=== PATIENT | male | born 1940 | race Two or more races ===

== ENCOUNTER 2018-07-31 11:01 | Inpatient (IN) | payer MEDICARE, MEDICAID ==
[~2018-07-31] VITALS: Ht 154.9 cm; Wt 54.6 kg
[2018-07-31] MEDS ORDERED: DECADRON IH STA (11:08)
[2018-07-31] MEDS ORDERED: DUONEB 0.5 MG-3 MG/3 ML SOLN IH STA (11:08)
[2018-07-31 11:14] VITALS: BP 145/90
--- NOTE | 2018-07-31 11:22 | PCM.EKG ---
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
--- NOTE | 2018-07-31 11:27 | DIREP ---
PROCEDURE:CHEST 1 VIEW COMPARISON:None. INDICATIONS:dyspnea FINDINGS: LUNGS/PLEURA:The portable view is rotated limiting evaluation. Patchy infiltrate and/or subsegmental atelectasis is seen in the right base. VASCULATURE:Normal. Unremarkable pulmonary vasculature. CARDIAC:Normal. No cardiac silhouette abnormality or cardiomegaly. MEDIASTINUM:Normal. No visible mass or adenopathy. BONES:A remote left lower rib fracture is seen. OTHER:Negative. CONCLUSION:Limited study secondary to significant rotation of the patient. Findings suggest patchy infiltrate and/or subsegmental atelectasis in the right base. Dictated by: Tristen Grier M.D. on 07/31/2018 at 11:24 AM
--- NOTE | 2018-07-31 11:41 | ER.PDOC ---
General Chief Complaint: Dyspnea/Respdistress Stated Complaint: DYSPNEA Time seen by MD: 11:40 Source: patient Exam Limitations: no limitations, other (ADVANCED DEMENTIA) History of Present Illness Timing/Duration: 4-6 hours Severity: mild Activities at Onset: rest Prior Episodes/Possible Cause: occasional episodes Modifying Factors: improves with activity, improves with albuterol inhaler, improves with coughing, improves with oxygen, improves with rest Associated Symptoms: denies symptoms Prior symptoms/Treatment: Similar symptoms previous Allergies: Coded Allergies: Penicillins (Verified Allergy, Unknown, unknown, 07/31/18) Home Meds Reported Medications Divalproex Sodium (DEPAKOTE SPRINKLE) 125 Mg Cap.sprink, 125 MG PO TID, #4 07/31/18 Docusate Sodium (COLACE) 100 Mg Capsule, 100 MG PO BID, CAPSULE 07/31/18 Multivitamin (Multi Vitamin Daily) 1 Each Tablet, 1 EACH PO DAILY24, TABLET 07/31/18 Metformin Hcl (METFORMIN HCL) 500 Mg Tablet, 500 MG PO DAILY24, TABLET 07/31/18 Memantine Hcl (NAMENDA) 10 Mg Tablet, 10 MG PO HS, TABLET 07/31/18 Lisinopril (LISINOPRIL) 20 Mg Tablet, 20 MG PO DAILY24, TABLET 07/31/18 Levothyroxine Sodium (LEVOTHYROXINE SODIUM) 75 Mcg Tablet, 75 MCG PO DAILY24, TABLET 07/31/18 Calcium Polycarbophil (FIBER TABS) 625 Mg Tablet, 625 MG PO DAILY24, TABLET 07/31/18 Cholecalciferol (Vitamin D3) (VITAMIN D) 1,000 Unit Capsule, 1000 UNIT PO DAILY24, #2 CAPSULE 07/31/18 Donepezil Hcl (ARICEPT) 10 Mg Tablet, 10 MG PO HS, TABLET 07/31/18 Amlodipine Besylate (AMLODIPINE BESYLATE) 10 Mg Tablet, 10 MG PO DAILY24, TABLET for blood pressure 170//90 and above 07/31/18 Past Medical History Medical History: diabetes, hypertension, thyroid disease, other Social History Smoking: non-smoker Alcohol Use: none Drug Use: none Reviewed Nursing Reviewed: Vital Signs, Abn. 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 NML as Tested, No Motor/Sensory Deficits, Alert, Normal Mood/Affect, Oriented x 3 Skin: Normal Color, Warm/Dry Lymphatic: No Adenopathy Results/Orders Results/Orders Laboratory Tests Test 07/31/18 11:30 07/31/18 11:40 Lactate Dehydrogenase 284 U/L (85-227) White Blood Count 18.7 10^3/uL (4.5-11.0) Red Blood Count 5.43 10^6/uL (4.50-5.90) Hemoglobin 15.6 g/dL (13.9-16.3) Hematocrit 46.7 % (37.0-53.0) Mean Corpuscular Volume 86.0 fL (78-100) Mean Corpuscular Hemoglobin 28.7 pg (26-34) Mean Corpuscular Hemoglobin Concent 33.4 g/dL (33-37) Red Cell Distribution Width 16.2 % (11.5-14.5) Platelet Count 240 10^3/uL (150-400) Mean Platelet Volume 9.3 fL (7.8-11.0) Neutrophils (%) (Auto) 80.1 % (41.0-85.0) Lymphocytes (%) (Auto) 8.8 % (24.0-44.0) Monocytes (%) (Auto) 9.9 % (5.0-12.0) Neutrophils # (Auto) 15.0 10^3/uL (1.8-7.7) Lymphocytes # (Auto) 1.7 10^3/uL (1.0-4.8) Monocytes # (Auto) 1.9 10^3/uL (0.3-0.8) Absolute Immature Granulocyte (auto 0.16 10^3 u/L (0-2) Eosinophils % 0.1 % (0.0-5.0) Basophils % 0.2 % (0.0-0.2) Basophils # 0.0 10^3/uL (0.0-0.1) Eosinophil Count 0.0 10^3/uL (0.0-0.2) Prothrombin Time 11.1 SEC (9.8-11.9) Prothrombin Time INR (Non-Therap) 1.1 Activated Partial Thromboplast Time 24.7 SEC (24.67-30.72) D-Dimer 2.02 mg/L (0.19-0.49) Sodium Level 140 mmol/L (132-145) Potassium Level 3.5 mmol/L (3.6-5.2) Chloride Level 106.0 mmol/L (96-109) Carbon Dioxide Level 22.9 mmol/L (20.0-32) Anion Gap 14.6 Blood Urea Nitrogen 19 mg/dL (7-18) Creatinine 1.03 mg/dL (0.59-1.40) Estimated GFR () 85.0 (>/=60) BUN/Creatinine Ratio 18.0 Glucose Level 123 mg/dL (70-110) Calcium Level 9.5 mg/dL (8.4-10.5) Total Bilirubin 0.5 mg/dL (0.2-1.0) Aspartate Amino Transf (AST/SGOT) 25 U/L (0-35) Alanine Aminotransferase (ALT/SGPT) 23 U/L (12-78) Alkaline Phosphatase 127 U/L (50-136) Ammonia 12 umol/L (11-35) Total Creatine Kinase 41 U/L (39-308) Troponin I < 0.02 ng/mL (0.00-0.05) Pro-B-Type Natriuretic Peptide 2702 pg/mL (0-450) Total Protein 6.7 g/dL (6.4-8.2) Albumin 2.3 g/dL (3.4-5.0) Globulin 4.4 Valproic Acid (Depakene) Level 57 ug/mL (50-100) Percent Immature Gran (Cell Imm) 0.90 % (0.00-0.50) Helicobacter pylori Screen NEGATIVE (NEGATIVE) Microbiology Date/Time Source Procedure Growth Status 07/31/18 11:58 Blood Blood Culture - Preliminary NO GROWTH AFTER 1 DAY Resulted 07/31/18 11:30 Blood Blood Culture - Preliminary NO GROWTH AFTER 1 DAY Resulted EKG/XRAY/CT/US EKG: NSR, no ST T wave changes EKG Comments: PAC'S Consult/PCP Time Consult/PCP Called: 17:00 Consult/PCP: dr rodriguez Course Vitals & review Data Vital Sign - Last 24 Hours 07/31/18 07/31/18 07/31/18 07/31/18 11:10 11:10 11:14 12:20 Temp 98.4 98.0 98.0 98.4 98.0 98.0 Pulse 78 78 78 87 Resp 18 18 18 20 B/P (MAP) 145/90 (108) 114/78 (90) Pulse Ox 92 92 88 O2 Delivery Nasal Canula Nasal Canula Room Air Laboratory Tests Test 07/31/18 11:30 07/31/18 11:40 Lactate Dehydrogenase 284 U/L White Blood Count 18.7 10^3/uL Red Blood Count 5.43 10^6/uL Hemoglobin 15.6 g/dL Hematocrit 46.7 % Mean Corpuscular Volume 86.0 fL Mean Corpuscular Hemoglobin 28.7 pg Mean Corpuscular Hemoglobin Concent 33.4 g/dL Red Cell Distribution Width 16.2 % Platelet Count 240 10^3/uL Mean Platelet Volume 9.3 fL Neutrophils (%) (Auto) 80.1 % Lymphocytes (%) (Auto) 8.8 % Monocytes (%) (Auto) 9.9 % Neutrophils # (Auto) 15.0 10^3/uL Lymphocytes # (Auto) 1.7 10^3/uL Monocytes # (Auto) 1.9 10^3/uL Absolute Immature Granulocyte (auto 0.16 10^3 u/L Eosinophils % 0.1 % Basophils % 0.2 % Basophils # 0.0 10^3/uL Eosinophil Count 0.0 10^3/uL Prothrombin Time 11.1 SEC Prothrombin Time INR (Non-Therap) 1.1 Activated Partial Thromboplast Time 24.7 SEC D-Dimer 2.02 mg/L Sodium Level 140 mmol/L Potassium Level 3.5 mmol/L Chloride Level 106.0 mmol/L Carbon Dioxide Level 22.9 mmol/L Anion Gap 14.6 Blood Urea Nitrogen 19 mg/dL Creatinine 1.03 mg/dL Estimated GFR () 85.0 BUN/Creatinine Ratio 18.0 Glucose Level 123 mg/dL Calcium Level 9.5 mg/dL Total Bilirubin 0.5 mg/dL Aspartate Amino Transf (AST/SGOT) 25 U/L Alanine Aminotransferase (ALT/SGPT) 23 U/L Alkaline Phosphatase 127 U/L Ammonia 12 umol/L Total Creatine Kinase 41 U/L Troponin I < 0.02 ng/mL Pro-B-Type Natriuretic Peptide 2702 pg/mL Total Protein 6.7 g/dL Albumin 2.3 g/dL Globulin 4.4 Valproic Acid (Depakene) Level 57 ug/mL Percent Immature Gran (Cell Imm) 0.90 % Helicobacter pylori Screen NEGATIVE Departure Time of Disposition: 15:00 Disposition: 09 ADMITTED INPATIENT Impression: Primary Impression: Chronic obstructive pulmonary disease Condition: Improved Referrals: PCP,UNKNOWN (PCP) PRIMARY CARE PROVIDER Duration or Time Spent with Pa: 2 hrs TREVA FLORES MD Jul 31, 2018 11:41
[2018-07-31 11:53] LABS: BASOPHIL % 0.2 % (0.0-0.2); EOSINOPHIL % 0.1 % (0.0-5.0); HEMOGLOBIN 15.6 g/dL (13.9-16.3); LYMPHOCYTES # 1.7 10^3/uL (1.0-4.8); LYMPHOCYTES % 8.8 % (24.0-44.0); MEAN CELL HGB 28.7 pg (26-34); MEAN CELL HGB CONCENTRATION 33.4 g/dL (33-37); MEAN PLATELET VOLUME 9.3 fL (7.8-11.0); MONOCYTES # 1.9 10^3/uL (0.3-0.8); MONOCYTES % 9.9 % (5.0-12.0); NEUTROPHILS % 80.1 % (41.0-85.0); RED CELL DISTRIBUTION WIDTH 16.2 % (11.5-14.5); WHITE BLOOD CELL 18.7 10^3/uL (4.5-11.0)
[2018-07-31] MEDS ORDERED: SOLU-MEDROL IV STA (12:02)
[2018-07-31] MEDS ORDERED: ZOSYN 3.375 GRAM VIAL 3.375 GM in NS 100ML 100 ML IV STA (12:02)
[2018-07-31] MEDS ORDERED: NS 100ML 100 ML IV ONE ×3 (12:05→22:03)
[2018-07-31] MEDS ORDERED: ZOSYN 3.375 GRAM VIAL IV ONE (12:06)
[2018-07-31] MEDS ORDERED: LISI-410 PO (12:07)
[2018-07-31] MEDS ORDERED: CALC625T20 PO (12:07)
[2018-07-31] MEDS ORDERED: DONE10TA57 PO (12:07)
[2018-07-31] MEDS ORDERED: DOCU-123 PO (12:07)
[2018-07-31] MEDS ORDERED: MULT-632 PO (12:07)
[2018-07-31] MEDS ORDERED: CHOL100011 PO (12:07)
[2018-07-31] MEDS ORDERED: METF500T17 PO (12:07)
[2018-07-31] MEDS ORDERED: MEMA10TA PO (12:07)
[2018-07-31] MEDS ORDERED: AMLO10TA8 PO (12:07)
[2018-07-31] MEDS ORDERED: LEVO75TA6 PO (12:07)
[2018-07-31] MEDS ORDERED: DIVA125C2 PO (12:07)
[2018-07-31 12:20] VITALS: BP 114/78
[2018-07-31 12:24] LABS: ALANINE AMINOTRANSFERASE(ML) 23 U/L (12-78); ALKALINE PHOSPHATASE 127 U/L (50-136); ASPARTATE AMINO TRANSFERASE 25 U/L (0-35); CALCIUM 9.5 mg/dL (8.4-10.5); CARBON DIOXIDE 22.9 mmol/L (20.0-32); GLUCOSE 123 mg/dL (70-110)
[2018-07-31] MEDS ORDERED: NS 1000ML 1,000 ML IV ONE (12:30)
[2018-07-31] MEDS ORDERED: NS 1000ML 1,000 ML SCH (13:00)
[2018-07-31] MEDS ORDERED: SOLU-MEDROL IV SCH (14:00)
[2018-07-31] MEDS ORDERED: LASIX IV STA (14:50)
[2018-07-31] MEDS ORDERED: DUONEB 0.5 MG-3 MG/3 ML SOLN IH ONE (14:55)
[2018-07-31] MEDS ORDERED: ZOFRAN IV PRN (15:00)
[2018-07-31] MEDS: XOPENEX IH SCH ×2 (15:00→20:26)
[2018-07-31] MEDS: ATROVENT IH SCH ×2 (15:00→20:26)
[2018-07-31] MEDS ORDERED: POTASSIUM CHLORIDE PO STA (15:12)
[2018-07-31] MEDS ORDERED: LASIX ONE (16:08)
[2018-07-31] MEDS: LOVENOX SQ SCH (16:14)
--- NOTE | 2018-07-31 16:19 | HPH ---
ADMIT DATE: 07/31/2018 CHIEF COMPLAINT: Shortness of breath. HISTORY OF PRESENT ILLNESS: This is a 77-year-old male, intermediate resident, who was transferred to our facility for evaluation of shortness of breath. The patient has dementia; however, according to the record available from the intermediate, it says that the patient while he was having his lunch today he developed shortness of breath, but the patient stated that he has been having this problem for a long time. The patient's mental status is not reliable though due to his dementia. PAST MEDICAL HISTORY: Significant for: 1. DM type 2. 2. Hypertension. 3. Thyroid disease. 4. Dementia. SOCIAL HISTORY: The patient does not smoke, drink or use any illicit drugs. He is a resident at a intermediate. ALLERGIES: No known drug allergy. HOME MEDICATIONS: The list is not available. REVIEW OF SYSTEMS: Could not be obtained properly due to the patient's mental status. PHYSICAL EXAMINATION: VITAL SIGNS: Temperature 98, pulse 87, respirations 18, blood pressure 114/78, O2 sat 88% on room air. HEENT: Pupils reactive. Conjunctivae intact. Sclerae anicteric. Nares patent. Earlobes intact. Throat clear. NECK: No JVD. No thyromegaly. No bruits. No lymphadenopathy. HEART: Regular rhythm. CHEST: Bilateral crackles on both lungs with decreased air entry and mild wheezing. ABDOMEN: Soft. No hepatosplenomegaly. No organomegaly. Bowel sounds active. No tenderness. EXTREMITIES: No cyanosis, clubbing or edema. Pulses are palpated at all sites with good amplitude. MUSCULOSKELETAL: No swelling, no tenderness, no deformities in the joints. 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 NEUROLOGIC: CN 2-CN 12 are intact. No motor or sensory deficit. Deep tendon reflexes are equal bilaterally. SKIN: No ulcers. No rashes. No paleness. Normal skin turgor. MENTAL STATUS: The patient is awake, but confused. LABORATORY DATA: CBC: White count 18.7, hemoglobin 15.6, hematocrit 46.7, platelet 240. Chemistry: Sodium 140, potassium 3.5, chloride 106, CO2 of 22.9, anion gap 14.6, BUN 19, creatinine 1.03, glucose 123, BNP to 2702. The chest x-ray is suggestive for patchy infiltrate with subsegmental atelectasis in the right base. DIAGNOSES: 1. Questionable aspiration pneumonia taken into consideration the elevated white count and the x-ray findings, although it is not a perfect chest x-ray due to being one-view and significant rotation of the patient; however, we will cover the patient with Zosyn 3.375 q. 6 hours for his questionable aspiration pneumonia, especially this shortness of breath according to the intermediate record aggravated during eating earlier today. 2. Congestive heart failure with fluid overload. The patient in fact has significant elevation in his BNP associated with normal BUN and creatinine. For this reason, I am going to place the patient on Lasix and continue with the monitoring at this point and replacing his potassium. I expect this congestive heart failure to be combined systolic and diastolic and acute on chronic. 3. Dementia. 4. Diabetes mellitus type 2. 5. Hypertension. MANAGEMENT: As above and O2 supplementation with bronchodilator. We will monitor electrolytes and labs and treat accordingly and we will give the patient DVT prophylaxis and GI prophylaxis. JUAN CASTANEDA MD DR: PHILLIP/chichi JOB# [id number]
[2018-07-31] MEDS: MEROPENEM 500 MG in NS 100ML 100 ML IV SCH ×2 (17:12→23:39)
[2018-07-31] MEDS ORDERED: ZOSYN 3.375 GM/50 ML IV SCH (18:00)
[2018-07-31] MEDS ORDERED: DUONEB 0.5 MG-3 MG/3 ML SOLN IH SCH (18:00)
[2018-07-31] MEDS ORDERED: ZOSYN 3.375 GRAM VIAL 3.375 GM in NS 100ML 100 ML IV SCH (18:00)
[2018-07-31 18:01] VITALS: BP 138/76
[2018-07-31 20:31] VITALS: BP 167/61
[2018-07-31] MEDS ORDERED: MEROPENEM 500 MG in NS 100ML 100 ML IV SCH (22:00)
[2018-07-31 23:37] VITALS: BP 158/72
[2018-08-01] MEDS: TYLENOL PO PRN ×2 (01:20→08:16)
[2018-08-01] MEDS: XOPENEX IH SCH ×4 (02:19→20:23)
[2018-08-01] MEDS: ATROVENT IH SCH ×4 (02:19→20:23)
[2018-08-01 05:30] LABS: BASOPHIL % 0.1 % (0.0-0.2); HEMOGLOBIN 13.7 g/dL (13.9-16.3); LYMPHOCYTES # 0.9 10^3/uL (1.0-4.8); LYMPHOCYTES % 5.5 % (24.0-44.0); MEAN CELL HGB 28.8 pg (26-34); MEAN CELL HGB CONCENTRATION 33.6 g/dL (33-37); MEAN CORP VOLUME 85.9 fL (78-100); MEAN PLATELET VOLUME 9.1 fL (7.8-11.0); MONOCYTES # 0.7 10^3/uL (0.3-0.8); MONOCYTES % 4.3 % (5.0-12.0); NEUTROPHILS % 89.1 % (41.0-85.0); WHITE BLOOD CELL 15.7 10^3/uL (4.5-11.0)
[2018-08-01 05:42] VITALS: BP 165/88
[2018-08-01] MEDS ORDERED: NS 100ML 100 ML IV ONE (06:29)
[2018-08-01 06:37] LABS: BAND NEUTROPHILS 7 % (2-6); LYMPHOCYTE 4 % (25-36); MONOCYTE 6 % (3-9); SEGMENTED NEUTROPHILS 83 % (31-76)
[2018-08-01 06:47] LABS: CALCIUM 9.5 mg/dL (8.4-10.5); CARBON DIOXIDE 24.4 mmol/L (20.0-32)
[2018-08-01 06:55] VITALS: BP 168/76
[2018-08-01] MEDS: MEROPENEM 500 MG in NS 100ML 100 ML IV SCH ×3 (06:55→23:08)
[2018-08-01] MEDS: PROTONIX PO SCH (08:15)
[2018-08-01] MEDS: LASIX IV SCH (08:15)
[2018-08-01] MEDS: ASPIRIN EC PO SCH (08:15)
[2018-08-01] MEDS: POTASSIUM CHLORIDE PO SCH (08:16)
[2018-08-01 14:15] VITALS: BP 160/64
[2018-08-01] MEDS: LOVENOX SQ SCH (15:18)
[2018-08-01 20:45] VITALS: BP 168/81
[2018-08-02 01:09] VITALS: BP 166/81
[2018-08-02] MEDS: ATROVENT IH SCH ×4 (03:22→21:37)
[2018-08-02] MEDS: XOPENEX IH SCH ×4 (03:23→21:37)
[2018-08-02 04:15] VITALS: BP 170/84
--- NOTE | 2018-08-02 04:20 | PNH ---
DATE: LOCATION: The patient is in room 341. SUBJECTIVE: The patient feels better, still confused; however, he does not seem to be in any respiratory distress. He has been diuresing pretty well. PHYSICAL EXAMINATION: VITAL SIGNS: Temperature 98.4, pulse 83, respirations 20, blood pressure 160/64, O2 sat 93% on room air. HEART: Regular rhythm. CHEST: Clear. ABDOMEN: Soft. EXTREMITIES: No cyanosis, clubbing or edema. LABORATORY DATA: CBC: White count 15.7, hemoglobin 13.7, hematocrit 40.8, platelet 213. Chemistry: Sodium 147, potassium 3.7, chloride 111, carbon dioxide 24.4, anion gap 15.3, BUN 19, creatinine 1.01. The glucose 156. BNP 6118. DIAGNOSES: 1. [facility]. 2. Congestive heart failure with fluid overload, improving clinically. We will repeat lab and electrolytes in the morning. Continue diuresis. 3. Dementia. 4. Diabetes mellitus type 2, stable. 5. Hypertension, stable. JUAN CASTANEDA MD DR: PHILLIP/chichi JOB# [id number]
[2018-08-02 05:48] LABS: MEAN CELL HGB 28.5 pg (26-34); MEAN CELL HGB CONCENTRATION 33.1 g/dL (33-37); MEAN CORP VOLUME 86.2 fL (78-100); MEAN PLATELET VOLUME 8.9 fL (7.8-11.0); RED CELL DISTRIBUTION WIDTH 16.1 % (11.5-14.5); WHITE BLOOD CELL 21.4 10^3/uL (4.5-11.0)
[2018-08-02 06:14] LABS: CALCIUM 9.3 mg/dL (8.4-10.5)
[2018-08-02] MEDS: MEROPENEM 500 MG in NS 100ML 100 ML IV SCH ×3 (06:36→21:41)
[2018-08-02 08:56] VITALS: BP 159/79
[2018-08-02] MEDS: LASIX IV SCH (08:59)
[2018-08-02] MEDS: POTASSIUM CHLORIDE PO SCH (08:59)
[2018-08-02] MEDS: PROTONIX PO SCH (08:59)
[2018-08-02] MEDS: ASPIRIN EC PO SCH (08:59)
[2018-08-02 11:23] VITALS: BP 162/66
[2018-08-02] MEDS: LOVENOX SQ SCH (15:19)
[2018-08-02 16:22] VITALS: BP 156/71
[2018-08-02 19:50] VITALS: BP 144/76
[2018-08-02] MEDS: TYLENOL PO PRN (21:43)
[2018-08-03 00:12] VITALS: BP 147/73
--- NOTE | 2018-08-03 02:43 | PNH ---
DATE: 08/02/18 LOCATION: The patient is in room #341 INTERVAL HISTORY: The patient is stable. He is improving clinically; however, his white count continues to go up with a left shift on the differential. PHYSICAL EXAMINATION: VITAL SIGNS: Temperature 97.6, pulse 50, respirations 18, blood pressure 162/66, O2 sat is 96% with oxygen delivered via nasal cannula at 2 liters per minute. HEART: Regular rhythm. CHEST: Decreased crackles. ABDOMEN: Soft. EXTREMITIES: No cyanosis, clubbing or edema. LABORATORY DATA: CBC: White count 21.4, hemoglobin 14, hematocrit 42.3, platelet 236. Chemistry, sodium 140, potassium 3.7, chloride 105, CO2 of 26, BUN 19, creatinine 0.96. The BNP is dropping down, today it is 3397. DIAGNOSES: 1. Pneumonia which is acquired at the [facility]. Continue meropenem and vancomycin. 2. Congestive heart failure with fluid overload, which has improved significantly. Continue to monitor for diuresis and electrolytes. 3. Dementia, stable. 4. Diabetes mellitus type 2, stable. 5. Hypertension, stable. 6. Leukocytosis, which is persistent. PLAN: I am going to follow up on the blood culture, but I am going to get urine culture and also check stool for C. diff. JUAN CASTANEDA MD DR: PHILLIP/chichi JOB# [id number] BETINA
[2018-08-03] MEDS: ATROVENT IH SCH ×4 (03:33→21:38)
[2018-08-03] MEDS: XOPENEX IH SCH ×4 (03:33→21:38)
[2018-08-03 05:21] VITALS: BP 144/67
[2018-08-03 05:30] LABS: BASOPHIL # 0.1 10^3/uL (0.0-0.1); BASOPHIL % 0.5 % (0.0-0.2); EOSINOPHIL # 0.3 10^3/uL (0.0-0.2); EOSINOPHIL % 2.5 % (0.0-5.0); HEMOGLOBIN 14.8 g/dL (13.9-16.3); LYMPHOCYTES % 16.3 % (24.0-44.0); MEAN CELL HGB 28.4 pg (26-34); MEAN CELL HGB CONCENTRATION 32.7 g/dL (33-37); MEAN CORP VOLUME 86.6 fL (78-100); MEAN PLATELET VOLUME 8.8 fL (7.8-11.0); MONOCYTES # 2.1 10^3/uL (0.3-0.8); MONOCYTES % 17.1 % (5.0-12.0); NEUTROPHIL # 7.5 10^3/uL (1.8-7.7); NEUTROPHILS % 59.8 % (41.0-85.0); RED CELL DISTRIBUTION WIDTH 16.1 % (11.5-14.5); WHITE BLOOD CELL 12.5 10^3/uL (4.5-11.0)
[2018-08-03] MEDS: MEROPENEM 500 MG in NS 100ML 100 ML IV SCH ×3 (06:09→22:44)
[2018-08-03 06:10] LABS: CALCIUM 9.1 mg/dL (8.4-10.5); CARBON DIOXIDE 28.4 mmol/L (20.0-32)
[2018-08-03 07:06] LABS: BAND NEUTROPHILS 2 % (2-6); EOSINOPHIL 2 % (1-4); LYMPHOCYTE 14 % (25-36); MONOCYTE 21 % (3-9); SEGMENTED NEUTROPHILS 61 % (31-76)
[2018-08-03 07:47] VITALS: BP 150/73
[2018-08-03] MEDS: ASPIRIN EC PO SCH (07:59)
[2018-08-03] MEDS: PROTONIX PO SCH (07:59)
[2018-08-03] MEDS: POTASSIUM CHLORIDE PO SCH (08:00)
[2018-08-03] MEDS: LASIX IV SCH (08:00)
--- NOTE | 2018-08-03 10:20 | DIET.OP ---
Nutrition Asmt/Malnutrit 2-17 Nutritional Screening: Malnutr/Diet Consult Diagnosis: Shortness of Breath Pertinent Medical Hx/Surgical: Per MD: Significant for: 1. DM type 2. 2. Hypertension. 3. Thyroid disease. 4. Dementia. Subjective Information: Spoke with the patient, but he has severe dementia Per RN. Information retrieved from him wasnt reliable. He currently has a good appetite. Currently on puree diet. Unable to obtain UBW and current medications or diet for DM. Current is controlling DM with diet in the hospital. Current Diet Order/Nutrition S: Dysphagia - Pureed Pertinent Meds Current Medications Medications (Trade) Dose Ordered Sig/Joanne PRN Reason Start Time Stop Time Status Last Admin Acetaminophen (Tylenol) 325 mg Q4H PRN PAIN MILD 07/31/18 15:00 08/30/18 14:59 08/02/18 21:43 Aspirin (Aspirin Ec) 81 mg DAILY 08/01/18 09:00 08/31/18 08:59 08/03/18 07:59 Enoxaparin Sodium (Lovenox) 40 mg Q24HRS 07/31/18 15:00 08/30/18 14:59 08/02/18 15:19 Furosemide (Lasix) 40 mg DAILY 08/01/18 09:00 08/31/18 08:59 08/03/18 08:00 Ipratropium [place] (Atrovent) 0.5 mg RTQ6 07/31/18 15:00 08/30/18 14:59 08/03/18 03:33 Levalbuterol HCl (Xopenex) 1.25 mg RTQ6 07/31/18 15:00 08/30/18 14:59 08/03/18 03:33 Meropenem 500 mg/ Sodium Chloride 100 ml @ 200 mls/hr Q8 07/31/18 17:00 08/30/18 16:59 08/03/18 06:09 Ondansetron HCl (Zofran) 4 mg Q4H PRN NAUSEA / VOMITING 07/31/18 15:00 08/30/18 14:59 Pantoprazole Sodium (Protonix) 40 mg DAILY 08/01/18 09:00 08/31/18 08:59 08/03/18 07:59 Potassium Chloride (Potassium Chloride) 40 meq DAILY 08/01/18 09:00 08/31/18 08:59 08/03/18 08:00 Pertinent Labs Laboratory Tests 08/03/18 04:55: White Blood Count 12.5H, Red Blood Count 5.22, Hemoglobin 14.8, Hematocrit 45.2 , Mean Corpuscular Volume 86.6, Mean Corpuscular Hemoglobin 28.4, Mean Corpuscular Hemoglobin Concent 32.7L, Red Cell Distribution Width 16.1H, Platelet Count 223, Mean Platelet Volume 8.8, Neutrophils (%) (Auto) 59.8, Lymphocytes (%) (Auto) 16.3L, Monocytes (%) (Auto) 17.1H, Neutrophils # (Auto) 7.5, Lymphocytes # (Auto) 2.0, Monocytes # (Auto) 2.1H, Absolute Immature Granulocyte (auto 0.48, Eosinophils % 2.5, Basophils % 0.5H, Basophils # 0.1, Eosinophil Count 0.3H, Sodium Level 139, Potassium Level 4.3, Chloride Level 103.0, Carbon Dioxide Level 28.4, Glucose Level 90, Blood Urea Nitrogen 20H, Creatinine 1.11, Calcium Level 9.1, Anion Gap 11.9, Estimated GFR () 77.9, BUN/Creatinine Ratio 18.0, Pro-B-Type Natriuretic Peptide 1864H , Percent Immature Gran (Cell Imm) 3.80H 08/03/18 06:10: Differential Total Cells Counted 100, Segmented Neutrophils 61, Band Neutrophils 2, Lymphocytes 14L, Monocytes 21H, Absolute Eosinophils (Manual) 2 Height (Feet): 5 Height (Inches): 1 Current Weight: 120 %IBW: 107 Weight Status: Underweight GI Symptoms: None Difficult in: Swallowing Food Allergies: No Cultural/Ethnic/Denominational Kelli: None Reported Usual Diet at Home: Pureed Current %PO: Good(75-100%) BEE in Kcals: Use Current Weight Calories/Kcals/Kg: MsJ * 1.2-1.3 Kcals Calculated: 3210-4156 Protein: Use Current Weight Protein g/k-20% of 1400 ADA Protein Calculated: 53g-70g Fluid: ml: 4177-0901 or 1 mL/kcal Nutritional Problem: Nutr. Problems Present Problems: Swallowing Difficulty Etiology: Neurological disorder (Dementia) Signs/Symptoms: Aspiration Pnuemonia, need for a Puree diet, Slurred speech Body Fat Depletion (Severe): Mod to Severe Depletion Muscle Mass (Severe): Mod to Severe Depletion Protein-Calorie Malnutrition: Severe RD Comments: CHO needs: 45-55% of 1400 ADA diet Intervention: 1. Continue with current diet per MD Monitor/evaluate: 1. Weight Status 2. po intake 3. Blood glucose levels Expected Outcomes Goal: 1. The patient will consume 100% of meals provided to meet 100% of estimated energy needs over the next 2-3 days Discharge plan: 1. Discharge planning in progress 2. Will discharge patient back to the assisted on current diet, if possible Malnutrtion/Nutrition Risk Edu: Yes STEFAN HAIR RD Aug 03, 2018 10:20
[2018-08-03 12:12] VITALS: BP 141/76
[2018-08-03] MEDS: LOVENOX SQ SCH (15:18)
[2018-08-03 16:46] VITALS: BP 152/80
--- NOTE | 2018-08-03 21:54 | PNH ---
DATE: 08/03/2018 LOCATION: He is in room 341. SUBJECTIVE: The patient is improving. He is doing much better. No complaints. PHYSICAL EXAMINATION: VITAL SIGNS: Temperature 97.9, pulse 56, respirations 20, blood pressure 141/76, O2 sat 95%. HEART: Regular rhythm. CHEST: Decreased crackles. ABDOMEN: Soft. EXTREMITIES: No cyanosis, clubbing or edema. LABORATORY DATA: CBC: White count 12.5, hemoglobin 14.8, hematocrit 45.2, platelet 223. Chemistry: Sodium 139, potassium 4.3, chloride 103, CO2 of 28.4, BUN 20, creatinine 1.11. The BNP is 1864. DIAGNOSES: 1. Pneumonia, which is acquired at the senior living and most likely it is aspiration pneumonia. We will continue meropenem and vancomycin for another 24 hours. The white count is starting to go down. 2. Congestive heart failure with fluid overload, which has been improving greatly. 3. Dementia, stable. 4. Diabetes mellitus type 2, stable. 5. Hypertension, stable. 6. Leukocytosis, as mentioned above is getting better. PLAN: I am going to repeat the CBC in the morning and we will anticipate discharging the patient back to the skilled unit by tomorrow if he continues to improve with good progress. JUAN CASTANEDA MD DR: PHILLIP/chichi JOB# [id number]
[2018-08-04] VITALS (7 sets, daily range): BP systolic 131–160; BP diastolic 70–80
[2018-08-04] MEDS: ATROVENT IH SCH ×4 (03:03→20:48)
[2018-08-04] MEDS: XOPENEX IH SCH ×4 (03:03→20:48)
[2018-08-04 05:10] LABS: BASOPHIL # 0.1 10^3/uL (0.0-0.1); BASOPHIL % 0.3 % (0.0-0.2); EOSINOPHIL # 0.3 10^3/uL (0.0-0.2); HEMOGLOBIN 14.3 g/dL (13.9-16.3); LYMPHOCYTES # 2.1 10^3/uL (1.0-4.8); MEAN CELL HGB 28.6 pg (26-34); MEAN CELL HGB CONCENTRATION 33.2 g/dL (33-37); MEAN CORP VOLUME 86.2 fL (78-100); MONOCYTES # 2.6 10^3/uL (0.3-0.8); MONOCYTES % 17.8 % (5.0-12.0); NEUTROPHIL # 9.2 10^3/uL (1.8-7.7); NEUTROPHILS % 62.3 % (41.0-85.0); WHITE BLOOD CELL 14.8 10^3/uL (4.5-11.0)
[2018-08-04 06:24] LABS: EOSINOPHIL 1 % (1-4); LYMPHOCYTE 8 % (25-36); MONOCYTE 19 % (3-9); SEGMENTED NEUTROPHILS 72 % (31-76)
[2018-08-04] MEDS: MEROPENEM 500 MG in NS 100ML 100 ML IV SCH ×3 (06:25→22:47)
[2018-08-04] MEDS ORDERED: NS 250ML 250 ML IV ONE (06:34)
[2018-08-04] MEDS: ASPIRIN EC PO SCH (08:32)
[2018-08-04] MEDS: POTASSIUM CHLORIDE PO SCH (08:32)
[2018-08-04] MEDS: PROTONIX PO SCH (08:32)
[2018-08-04] MEDS: LASIX IV SCH (08:33)
[2018-08-04] MEDS: LOVENOX SQ SCH (15:02)
--- NOTE | 2018-08-05 01:19 | PNH ---
DATE: 08/04/2018 LOCATION: The patient is in room 341. SUBJECTIVE: The patient is stable, improving; however, his white count is still not well controlled with slight hump in the white count today. PHYSICAL EXAMINATION: VITAL SIGNS: Temperature 98.1, pulse 71, respirations 18, blood pressure 139/80, O2 sat is 95% on room air. HEART: Regular rhythm. CHEST: Mild rare crackles on both the lungs. ABDOMEN: Soft. EXTREMITIES: No cyanosis, clubbing or edema. LABORATORY DATA: CBC: White count 14.8, hemoglobin 14.3, hematocrit 43.1, platelet 238. Chemistry: Sodium 139, potassium 4.3, chloride 103, CO2 of 28, anion gap 11.9, BUN 20, creatinine 1.11. BNP is continued to drop, today it is 1864. DIAGNOSES: 1. Pneumonia, which is aspiration pneumonia. Continue current intravenous antibiotics, still having leukocytosis; however, clinically the patient has made great progress. I am going to keep him one extra day and recheck his CBC tomorrow. 2. Congestive heart failure with fluid overload. This has been greatly responding to the diuretics and optimization of his cardiac medicine. 3. Dementia, stable. 4. Diabetes mellitus type 2, stable. 5. Hypertension, stable. MANAGEMENT: Continue with present care. Repeat CBC in the morning. Anticipate discharge to the [facility] facility in a.m. if remains stable. JUAN CASTANEDA MD DR: PHILLIP/chichi JOB# [id number]
[2018-08-05] MEDS: ATROVENT IH SCH ×4 (02:40→21:19)
[2018-08-05] MEDS: XOPENEX IH SCH ×4 (02:40→21:19)
[2018-08-05 05:10] LABS: BASOPHIL # 0.1 10^3/uL (0.0-0.1); BASOPHIL % 0.5 % (0.0-0.2); EOSINOPHIL # 0.4 10^3/uL (0.0-0.2); EOSINOPHIL % 2.7 % (0.0-5.0); HEMOGLOBIN 13.6 g/dL (13.9-16.3); LYMPHOCYTES # 3.1 10^3/uL (1.0-4.8); LYMPHOCYTES % 19.3 % (24.0-44.0); MEAN CELL HGB 28.1 pg (26-34); MEAN CELL HGB CONCENTRATION 32.2 g/dL (33-37); MEAN CORP VOLUME 87.2 fL (78-100); MEAN PLATELET VOLUME 8.6 fL (7.8-11.0); MONOCYTES # 2.6 10^3/uL (0.3-0.8); MONOCYTES % 16.3 % (5.0-12.0); NEUTROPHIL # 9.2 10^3/uL (1.8-7.7); NEUTROPHILS % 57.6 % (41.0-85.0); RED CELL DISTRIBUTION WIDTH 16.3 % (11.5-14.5)
[2018-08-05 05:33] VITALS: BP 148/74
[2018-08-05 06:12] LABS: BASOPHIL 1 % (0-2); EOSINOPHIL 2 % (1-4); LYMPHOCYTE 18 % (25-36); MONOCYTE 11 % (3-9); SEGMENTED NEUTROPHILS 68 % (31-76)
[2018-08-05] MEDS: MEROPENEM 500 MG in NS 100ML 100 ML IV SCH ×3 (06:19→22:59)
[2018-08-05 08:33] VITALS: BP 140/84
[2018-08-05] MEDS: LASIX IV SCH (09:21)
[2018-08-05] MEDS: POTASSIUM CHLORIDE PO SCH (09:21)
[2018-08-05] MEDS: PROTONIX PO SCH (09:21)
[2018-08-05] MEDS: ASPIRIN EC PO SCH (09:21)
[2018-08-05] MEDS ORDERED: ZYVOX PO ONE (10:09)
[2018-08-05] MEDS: ZYVOX PO SCH ×2 (10:30→21:00)
[2018-08-05 13:02] VITALS: BP 148/75
[2018-08-05 16:46] VITALS: BP 143/98
[2018-08-05] MEDS: LOVENOX SQ SCH (18:15)
[2018-08-05 20:10] VITALS: BP 148/80
[2018-08-05] MEDS ORDERED: NS 250ML 250 ML IV ONE (22:56)
[2018-08-06 01:46] VITALS: BP 158/90
[2018-08-06] MEDS: XOPENEX IH SCH ×4 (02:54→21:01)
[2018-08-06] MEDS: ATROVENT IH SCH ×4 (02:54→21:00)
[2018-08-06 04:10] VITALS: BP 190/100
[2018-08-06] MEDS ORDERED: NORVASC PO STA (04:24)
[2018-08-06 05:11] LABS: BASOPHIL # 0.1 10^3/uL (0.0-0.1); BASOPHIL % 0.2 % (0.0-0.2); EOSINOPHIL # 0.2 10^3/uL (0.0-0.2); EOSINOPHIL % 0.8 % (0.0-5.0); HEMOGLOBIN 14.4 g/dL (13.9-16.3); LYMPHOCYTES # 2.2 10^3/uL (1.0-4.8); LYMPHOCYTES % 10.3 % (24.0-44.0); MEAN CELL HGB 28.7 pg (26-34); MEAN CELL HGB CONCENTRATION 33.6 g/dL (33-37); MEAN CORP VOLUME 85.5 fL (78-100); MONOCYTES # 2.4 10^3/uL (0.3-0.8); NEUTROPHIL # 16.3 10^3/uL (1.8-7.7); NEUTROPHILS % 76.2 % (41.0-85.0); RED CELL DISTRIBUTION WIDTH 15.9 % (11.5-14.5); WHITE BLOOD CELL 21.4 10^3/uL (4.5-11.0)
[2018-08-06] MEDS: ZYVOX PO SCH (06:29)
[2018-08-06] MEDS: MEROPENEM 500 MG in NS 100ML 100 ML IV SCH (08:05)
[2018-08-06 08:10] VITALS: BP 179/98
[2018-08-06] MEDS: POTASSIUM CHLORIDE PO SCH (08:24)
[2018-08-06] MEDS: PROTONIX PO SCH (08:25)
[2018-08-06] MEDS: ASPIRIN EC PO SCH (08:25)
[2018-08-06] MEDS: LASIX IV SCH (08:25)
[2018-08-06] MEDS ORDERED: ZYPREXA IM STA (08:36)
[2018-08-06] MEDS ORDERED: WATER 20 ML ONE (08:37)
--- NOTE | 2018-08-06 09:21 | PNH ---
DATE: 08/05/2018 The patient is in room #341. SUBJECTIVE: The patient is feeling better and is more active; however, his white count is still going up. PHYSICAL EXAMINATION: VITAL SIGNS: Temperature is 98.8, pulse 100, respirations 18, blood pressure 143/98, and O2 sat 94% on room air. HEART: Regular rhythm. CHEST: Clear. ABDOMEN: Soft. EXTREMITIES: No cyanosis, clubbing, or edema. LABORATORY DATA: CBC: White count 16, hemoglobin 13.6, hematocrit 42.2, and platelets 229. The blood cultures remained negative after 5 days of incubation. DIAGNOSES: 1. Pneumonia, which is aspiration pneumonia. The patient is still having elevation in the white count. I am going to add Zyvox to his regimen and will continue the meropenem at this point, and we will continue to monitor the white cells. 2. Congestive heart failure, which has improved greatly. 3. Dementia, stable. 4. Diabetes mellitus type 2, stable. 5. Hypertension, stable. JUAN CASTANEDA MD DR: PHILLIP/chichi JOB# [id number]
[2018-08-06 11:12] VITALS: BP 165/77
[2018-08-06] MEDS ORDERED: ZYPREXA ZYDIS SL PRN (14:00)
[2018-08-06 15:07] VITALS: BP 133/79
[2018-08-06] MEDS: VIBRAMYCIN PO SCH ×2 (15:22→20:07)
[2018-08-06 19:00] VITALS: BP 158/92
[2018-08-06] MEDS ORDERED: LOVENOX SQ SCH (20:00)
[2018-08-07] VITALS: BP 168/89
[2018-08-07] MEDS: ATROVENT IH SCH ×3 (02:29→14:32)
[2018-08-07] MEDS: XOPENEX IH SCH ×3 (02:29→14:32)
[2018-08-07 04:00] VITALS: BP 172/80
[2018-08-07 05:08] LABS: BASOPHIL # 0.1 10^3/uL (0.0-0.1); BASOPHIL % 0.4 % (0.0-0.2); EOSINOPHIL # 0.3 10^3/uL (0.0-0.2); EOSINOPHIL % 1.3 % (0.0-5.0); LYMPHOCYTES # 2.5 10^3/uL (1.0-4.8); LYMPHOCYTES % 12.7 % (24.0-44.0); MEAN CELL HGB 28.5 pg (26-34); MEAN CELL HGB CONCENTRATION 32.9 g/dL (33-37); MEAN CORP VOLUME 86.4 fL (78-100); MONOCYTES # 2.4 10^3/uL (0.3-0.8); MONOCYTES % 12.3 % (5.0-12.0); NEUTROPHIL # 14.3 10^3/uL (1.8-7.7); NEUTROPHILS % 72.5 % (41.0-85.0); RED CELL DISTRIBUTION WIDTH 16.2 % (11.5-14.5); WHITE BLOOD CELL 19.8 10^3/uL (4.5-11.0)
[2018-08-07 05:25] LABS: CARBON DIOXIDE 23.2 mmol/L (20.0-32)
[2018-08-07 08:43] VITALS: BP 170/86
[2018-08-07] MEDS ORDERED: LASIX PO SCH (09:00)
[2018-08-07] MEDS ORDERED: NORVASC PO SCH (09:00)
[2018-08-07] MEDS ORDERED: POTASSIUM CHLORIDE PO SCH (09:00)
--- NOTE | 2018-08-07 09:07 | PNH ---
DATE: 08/06/2018 LOCATION: The patient is in room #341. SUBJECTIVE: The patient has been doing pretty well; however, he had some elevation in his blood pressure last night, and he started also having significant agitation which required the patient to be on 1:1 observation and also to be given antipsychotic medications to help him out with his agitation, and this morning, also his lab work showed elevation in the white count, which does not correlate with any signs of an infection at this point. The patient in fact is afebrile, and he is having a good appetite without any significant problem. PHYSICAL EXAMINATION: VITAL SIGNS: Temperature 98, pulse 86, respirations 20, blood pressure 165/77, and O2 sat is 99% with oxygen delivered via nasal cannula at 2 L per minute. HEART: Regular rhythm. CHEST: Clear. ABDOMEN: Soft. EXTREMITIES: No cyanosis, clubbing, or edema. LABORATORY DATA: CBC: White count 21.4, hemoglobin 14.4, hematocrit 42.9, and platelet 288. DIAGNOSES: 1. Pneumonia, which is aspiration pneumonia. The patient currently does not look like he has any aggravation of his pneumonia. The only abnormality of elevated white count would deserve that we monitor, and I am going to get the patient ready before he goes back to the residential tomorrow by discontinuing the IV antibiotics for now and just place him on doxycycline for 7 days. 2. Congestive heart failure, which is stabilized and improved. I am going to switch him to p.o. Lasix. 3. Dementia, which has not been stable since yesterday with some schizoaffective behavior. I am going to add Zyprexa Zydis p.r.n. 4. Diabetes mellitus type 2, stable. 5. Hypertension. We will add amlodipine 5 mg daily, and I am going to check a CBC and BMP in the morning. Even if his white count is still elevated, I will still send him back to the long term facility and keep monitoring his white count while he is there; by the way, the blood cultures remained negative with the patient. JUAN CASTANEDA MD DR: PHILLIP/chichi JOB# [id number]
[2018-08-07] MEDS: PROTONIX PO SCH (09:48)
[2018-08-07] MEDS: ASPIRIN EC PO SCH (09:48)
[2018-08-07] MEDS: VIBRAMYCIN PO SCH (09:48)
[2018-08-07] MEDS ORDERED: POTA20LI PO (10:32)
[2018-08-07] MEDS ORDERED: AMLO5TAB4 PO (10:32)
[2018-08-07] MEDS ORDERED: FURO20TA3 PO (10:32)
[2018-08-07] MEDS ORDERED: PANT40TA3 PO (10:32)
[2018-08-07] MEDS ORDERED: ASPI-655 PO (10:32)
[2018-08-07] MEDS ORDERED: DOXY100T PO (10:32)
[2018-08-07 12:04] VITALS: BP 176/80
--- NOTE | 2018-08-07 14:33 | DSH ---
DATE OF DISCHARGE: 08/07/2018 DISCHARGE DIAGNOSES: 1. Aspiration pneumonia. 2. Congestive heart failure. 3. Dementia/schizoaffective disorder. 4. Diabetes mellitus type 2. 5. Hypertension. DISCHARGE MEDICATIONS: The patient is going to be discharged back to the snf facility with the following medications: 1. Amlodipine 5 mg daily. 2. Aspirin 81 mg daily. 3. Calcium. 4. Vitamin D. 5. Depakote 125 mg p.o. t.i.d. 6. Colace 100 mg p.o. b.i.d. 7. Donepezil 10 mg at bedtime. 8. Doxycycline 100 mg p.o. b.i.d. for 7 days. 9. Lasix 20 mg daily. 10. Synthroid 75 mcg daily. 11. Lisinopril 20 mg daily. 12. Namenda 10 mg at bedtime. 13. Metformin 500 mg daily. 14. Multivitamin 1 tablet daily. 15. Protonix 40 mg daily. 16. Potassium chloride 20 mEq daily. The patient today feels okay, no complaints. PHYSICAL EXAMINATION: VITAL SIGNS: Temperature is 97.8, pulse 90, respirations 18, blood pressure 170/86, O2 sat is 94% on room air. HEART: Regular rhythm. CHEST: Clear. ABDOMEN: Soft. EXTREMITIES: No cyanosis, clubbing or edema. HOSPITAL COURSE: The patient was admitted initially with significant pneumonia, which I thought is most likely due to aspiration pneumonia since the patient has advanced end-stage dementia and was significantly lethargic. The patient was placed on broad-spectrum IV antibiotics and the culture remained negative and the patient improved greatly. However, the patient has been having a problem with his white count, which continued to fluctuate during his stay; however, clinically, the patient has been doing great and made a great improvement and I elected just to continue his doxycycline to complete a course of 14 days of antibiotics total, IV and p.o., and after that get a CBC checked to determine if the patient needs any further testing if he continued to have elevated white blood cells. DISPOSITION: The patient is going to be discharged to the snf facility in a good condition. JUAN CASTANEDA MD DR: PHILLIP/chichi JOB# [id number]
[2018-08-07 15:22] VITALS: BP 161/72
[2018-08-07 16:36] VITALS: BP 161/72
== END 2018-08-07 17:34 | DRG 177 ==
LOC: ER 11:01 → MS 12:35
PROVIDERS: ADMIT Internal Medicine; ATTEND Internal Medicine
DX: J69.0 Pneumonitis due to inhalation of food and vomit (principal); I50.43 Acute on chronic combined systolic (congestive) and diastolic (congestive) heart failure; E44.0 Moderate protein-calorie malnutrition; I11.0 Hypertensive heart disease with heart failure; E11.9 Type 2 diabetes mellitus without complications; F03.90 Unspecified dementia, unspecified severity, without behavioral disturbance, psychotic disturbance, mood disturbance, and anxiety; F25.9 Schizoaffective disorder, unspecified; J44.9 Chronic obstructive pulmonary disease, unspecified; Z79.899 Other long term (current) drug therapy; Z79.82 Long term (current) use of aspirin; Z88.0 Allergy status to penicillin; Z68.22 Body mass index [BMI] 22.0-22.9, adult
CPT/HCPCS: 36415; 71045; 80048; 80053; 80164; 82140; 82550; 83615; 83880; 84484; 85025; 85027; 85379; 85610; 85730; 86677; 87040; 93005; 94640; 99285; G0378; J1650; J1940; J2543; J2920; J2930; J3490; J7030; J7050; J7620; J7644; A4216; A9270

== ENCOUNTER → 2018-10-26 | Outpatient (CLI) | payer MEDICARE, MEDICAID ==
[~2018-10-26] MED LIST: AMLO10TA8 PO; AMLO5TAB4 PO; ASPI-655 PO; CALC625T20 PO; CHOL100011 PO; DIVA125C2 PO; DOCU-123 PO; DONE10TA57 PO; DOXY100T PO; FURO20TA3 PO; LEVO75TA6 PO; LISI-410 PO; MEMA10TA PO; METF500T17 PO; MULT-632 PO; PANT40TA3 PO; POTA20LI PO
== END | disposition home or self-care (01) ==
LOC: LAB 08:18
PROVIDERS: ATTEND Internal Medicine
DX: M62.81 Muscle weakness (generalized) (principal); G30.9 Alzheimer's disease, unspecified; I11.0 Hypertensive heart disease with heart failure; I50.9 Heart failure, unspecified; E11.9 Type 2 diabetes mellitus without complications; F33.9 Major depressive disorder, recurrent, unspecified; F63.9 Impulse disorder, unspecified; E03.9 Hypothyroidism, unspecified; Z79.84 Long term (current) use of oral hypoglycemic drugs
CPT/HCPCS: 87070

== ENCOUNTER 2018-11-07 15:04 | Emergency (ER) | payer MEDICARE, MEDICAID ==
[~2018-11-07] VITALS: Ht 124.5 cm; Wt 52.2 kg
--- NOTE | 2018-11-07 15:07 | NUR ---
ARRIVAL PATIENT TO ER 2, EMS STATES THAT THE PATIENT VOMITTED AND POSSIBLY ASPERATED AND DESATED, THEN POSSIBLY VAGALED. PATIENT ARRIVED TO THIS ER SATING 99 ON 4L NC. EMS STATES THAT PATIENT HAS BEEN CALM FOR THEM THROUGHT THE RIDE. PATIENT CONNECTED TO ALL MONITORS, GREY PERCHER IN PLACE. ASSESSMENT COMPLETED, AWAITING MD PATTON.
[2018-11-07] MEDS ORDERED: NS 1000ML 1,000 ML IV STA ×2 (15:25→18:50)
--- NOTE | 2018-11-07 15:25 | ER.PDOC ---
General Chief Complaint: Requesting Medical Care Stated Complaint: ALOC Time seen by MD: 15:20 Source: patient, EMS, assisted records History of Present Illness Initial Comments 77 Y/O MALE WITH HX OF CHOKING EARLY TODAY AT [place], NOW WITH MORE ALTERED MS THEN NORMAL. PATIENT POOR HISTORIAN, STATES NO TO ALL QUESTIONS, NO PAIN, NO CP, NO SOB, NO FEVER, PATIENT VOICES NO COMPLAINTS. Character of AMS: confused Context: assisted resident, chronic dementia Usually: alert, disorient. to time, walks only w/ assistance Prior symptoms/Treatment: Similar symptoms previous Allergies: Coded Allergies: Penicillins (Verified Allergy, Unknown, unknown, 07/31/18) Home Meds Active Scripts Pantoprazole Sodium (PROTONIX) 40 Mg Tablet.dr, 40 MG PO DAILY for 30 Days Prov:JUAN CASTANEDA MD 08/07/18 Potassium Chloride (POTASSIUM CHLORIDE) 20 Meq/15 Ml Liquid, 20 MEQ PO DAILY for 30 Days Prov:JUAN CASTANEDA MD 08/07/18 Furosemide (FUROSEMIDE) 20 Mg Tablet, 20 MG PO DAILY for 30 Days, TABLET Prov:JUAN CASTANEDA MD 08/07/18 Aspirin (ASPIRIN EC) 81 Mg Tablet.dr, 81 MG PO DAILY for 30 Days Prov:JUAN CASTANEDA MD 08/07/18 Amlodipine Besylate (NORVASC) 5 Mg Tablet, 5 MG PO DAILY for 30 Days, TABLET Prov:JUAN CASTANEDA MD 08/07/18 Doxycycline Hyclate (DOXYCYCLINE HYCLATE) 100 Mg Tablet, 100 MG PO BID for 7 Days, TABLET Prov:JUAN CASTANEDA MD 08/07/18 Reported Medications Divalproex Sodium (DEPAKOTE SPRINKLE) 125 Mg Cap.sprink, 125 MG PO TID, #4 07/31/18 Docusate Sodium (COLACE) 100 Mg Capsule, 100 MG PO BID, CAPSULE 07/31/18 Multivitamin (Multi Vitamin Daily) 1 Each Tablet, 1 EACH PO DAILY24, TABLET 07/31/18 Metformin Hcl (METFORMIN HCL) 500 Mg Tablet, 500 MG PO DAILY24, TABLET 07/31/18 Memantine Hcl (NAMENDA) 10 Mg Tablet, 10 MG PO HS, TABLET 07/31/18 Lisinopril (LISINOPRIL) 20 Mg Tablet, 20 MG PO DAILY24, TABLET 07/31/18 Levothyroxine Sodium (LEVOTHYROXINE SODIUM) 75 Mcg Tablet, 75 MCG PO DAILY24, TABLET 07/31/18 Calcium Polycarbophil (FIBER TABS) 625 Mg Tablet, 625 MG PO DAILY24, TABLET 07/31/18 Cholecalciferol (Vitamin D3) (VITAMIN D) 1,000 Unit Capsule, 1000 UNIT PO DAILY24, #2 CAPSULE 07/31/18 Donepezil Hcl (ARICEPT) 10 Mg Tablet, 10 MG PO HS, TABLET 07/31/18 Past Medical History Medical History: cardiac problems, other Family History Significant Family History: other Social History Smoking: non-smoker Alcohol Use: none Drug Use: none Reviewed Nursing Reviewed: Vital Signs, Abn. Noted, Nursing Assessment Review of Systems Constitutional: no symptoms reported Eyes: no symptoms reported Ears, Nose, Mouth, Throat: no symptoms reported Respiratory: no symptoms reported Cardiovascular: no symptoms reported Gastrointestinal: no symptoms reported Genitourinary: no symptoms reported Musculoskeletal: no symptoms reported Skin: no symptoms reported Endocrine: no symptoms reported Hematologic/Lymphatic: no symptoms reported Physical Exam General Appearance: alert, no distress HEENT: no apparent trauma, EOM's intact, no nystagmus, PERRL, ENT inspection nml, airway intact, dry mucous membranes Neuro/Psych: nml mood/affect, disoriented to place, disoriented to time Cranial Nerves: nml as tested Cerebellar: other Peripheral Exam: motor nml, sensation nml, reflexes nml Neck: supple, non-tender, no carotid bruit Respiratory: no resp distress, breath sounds nml CVS: reg rate & rhythm, heart sounds nml Abdomen: non-tender, no organomegaly, no distention Skin: color nml, no rash, warm/dry Extremities: non-tender, nml ROM, no pedal edema Comments PATIENT WITH CHRONIC DEMENTIA, VOICES NO COMPLAINTS, FOLLOWS SIMPLE COMMANDS, NON FOCAL EXAM. Results/Orders Results/Orders Orders - CHANELL TOMLIN DO Ekg-Routine (11/07/18 15:25) Cbc With Auto Diff (11/07/18 15:25) Comprehensive Metabolic Panel (11/07/18 15:25) Troponin I (11/07/18 15:25) Creatine Kinase Mb (11/07/18 15:25) Urinalysis (11/07/18 15:25) Xr Chest 1v (11/07/18 15:25) Saline Lock (11/07/18 15:25) 0.9 % Sodium Chloride (Ns 1000ml) (11/07/18 15:25) 0.9 % Sodium Chloride (Ns 1000ml) (11/07/18 15:57) Urine Culture (11/07/18 15:40) Ct Head Wo Contrast (11/07/18 17:27) Sodium Bicarbonate (Sodium Bicarbonate) (11/07/18 17:29) Dextrose 50 % In Water (Dextrose 50%-Zeus (11/07/18 17:29) Insulin Regular, Human (Humulin R) (11/07/18 17:30) Dextrose 50 % In Water (Dextrose 50%-Zeus (11/07/18 17:38) Sodium Bicarbonate (Sodium Bicarbonate) (11/07/18 17:38) Insulin Regular, Human (Humulin R) (11/07/18 17:38) Vital Signs Date Time Temp Pulse Resp B/P (MAP) Pulse Ox O2 Delivery O2 Flow Rate FiO2 11/07/18 15:34 98.0 72 20 108/64 (79) 94 Room Air 98.0 11/07/18 15:27 98.0 72 20 98.0 11/07/18 15:27 98.4 72 18 94 Room Air 98.4 Administered Medications Medications (Trade) Dose Ordered Sig/Joanne Route PRN Reason Start Time Stop Time Status Last Admin Dose Admin Dextrose (Dextrose 50%-Water Syringe) 25 ml STAT STAT IV 11/07/18 17:29 11/07/18 17:36 DC 11/07/18 17:53 25 ML Insulin Human Regular (Humulin R) 8 unit OT ONCE IV 11/07/18 17:30 11/07/18 17:36 DC 11/07/18 17:53 8 UNIT Sodium Bicarbonate (Sodium Bicarbonate) 50 meq STAT STAT IV 11/07/18 17:29 11/07/18 17:36 DC 11/07/18 17:53 50 MEQ Sodium Chloride 1,000 ml @ 0 mls/hr Q0M STAT IV 11/07/18 15:25 11/07/18 15:30 DC 11/07/18 16:03 1,200 MLS/HR Laboratory Tests Test 11/07/18 15:40 11/07/18 15:59 White Blood Count 10.6 10^3/uL (4.5-11.0) Red Blood Count 5.65 10^6/uL (4.50-5.90) Hemoglobin 16.9 g/dL (13.9-16.3) H Hematocrit 51.6 % (37.0-53.0) Mean Corpuscular Volume 91.3 fL (78-100) Mean Corpuscular Hemoglobin 29.9 pg (26-34) Mean Corpuscular Hemoglobin Concent 32.8 g/dL (33-37) L Red Cell Distribution Width 16.0 % (11.5-14.5) H Platelet Count 160 10^3/uL (150-400) Mean Platelet Volume 10.4 fL (7.8-11.0) Neutrophils (%) (Auto) 63.6 % (41.0-85.0) Lymphocytes (%) (Auto) 20.7 % (24.0-44.0) L Monocytes (%) (Auto) 11.4 % (5.0-12.0) Neutrophils # (Auto) 6.7 10^3/uL (1.8-7.7) Lymphocytes # (Auto) 2.2 10^3/uL (1.0-4.8) Monocytes # (Auto) 1.2 10^3/uL (0.3-0.8) H Absolute Immature Granulocyte (auto 0.04 10^3 u/L (0-2) Eosinophils % 2.9 % (0.0-5.0) Basophils % 1.0 % (0.0-0.2) H Basophils # 0.1 10^3/uL (0.0-0.1) Eosinophil Count 0.3 10^3/uL (0.0-0.2) H Urine Collection Type VOID Urine Color YELLOW (YELLOW) Urine Appearance CLEAR (CLEAR) Urine Bilirubin NEGATIVE MG/DL (NEGATIVE) Urine Ketones NEGATIVE (NEGATIVE) Urine Specific [place] 1.010 (1.005-1.035) Urine pH 8 (5.0-6.0) Urine Protein NEGATIVE (NEGATIVE) Urine Urobilinogen NORMAL (NEGATIVE) Urine Nitrate NEGATIVE (NEGATAIVE) Urine Leukocyte Esterase 25 /uL TRACE (NEGATIVE) Urine Blood NEGATIVE (NEGATIVE) Urine RBC NONE SEEN RBC/HPF (NONE Urine WBC 2-5 WBC/HPF (0-2) Urine Squamous Epithelial Cells NONE SEEN #/HPF (FEW) Urine Bacteria MANY (NONE SEEN) H Urine Glucose NORMAL (NEGATIVE) Sodium Level 146 mmol/L (132-145) H Potassium Level 6.3 mmol/L (3.6-5.2) *H Chloride Level 111.0 mmol/L (96-109) H Carbon Dioxide Level 23.0 mmol/L (20.0-32) Anion Gap 18.3 Blood Urea Nitrogen 71 mg/dL (7-18) H Creatinine 2.99 mg/dL (0.59-1.40) *H Estimated GFR () 24.8 (>/=60) BUN/Creatinine Ratio 23.0 Glucose Level 133 mg/dL (70-110) H Calcium Level 9.5 mg/dL (8.4-10.5) Total Bilirubin 0.2 mg/dL (0.2-1.0) Aspartate Amino Transferase (AST) 42 U/L (0-35) H Alanine Aminotransferase (ALT) 70 U/L (12-78) Alkaline Phosphatase 142 U/L (50-136) H Creatine Kinase MB 1.1 ng/mL (0.5-3.6) Troponin I 0.03 ng/mL (0.00-0.05) Total Protein 7.6 g/dL (6.4-8.2) Albumin 3.2 g/dL (3.4-5.0) L Globulin 4.4 Percent Immature Gran (Cell Imm) 0.40 % (0.00-0.50) Differential Total Cells Counted 100 #CELLS Segmented Neutrophils 66 % (31-76) Lymphocytes 22 % (25-36) L Monocytes 8 % (3-9) Absolute Eosinophils (Manual) 2 % (1-4) Basophils 1 % (0-2) Atypical Lymphocytes 1 % Toxic Granulation 1+ (NEGATIVE) Platelet Estimate ADEQUATE Platelet Morphology NORMAL Poikilocytosis 1+ (NEGATIVE) Anisocytosis 1+ (NEGATIVE) EKG/XRAY/CT/US EKG: NSR EKG Comments: CHRONIC LBBB/LEFT ANT FASCICULAR BLOCK Consult/PCP Time Consult/PCP Called: 18:15 Consult/PCP: [facility] Departure Time of Disposition: 18:46 Disposition: 70 DISC/XFER TO [facility] Impression: Primary Impression: Hyperkalemia Additional Impressions: Renal failure Dementia Dehydration Condition: Stable If Transfer, List PT Destinati: [facility], DR CAGLE Referrals: PCP,UNKNOWN (PCP) PRIMARY CARE PROVIDER Duration or Time Spent with Pa: 45 MIN Critical Care Note Total Time (mins): 30 Comments PATIENT SEEM ABOVE LEVEL 5 SERVICE FOR 30 MIN. Problem Qualifiers CHANELL TOMLIN DO Nov 07, 2018 15:25
[2018-11-07 15:34] VITALS: BP 108/64
[2018-11-07 15:51] LABS: BASOPHIL # 0.1 10^3/uL (0.0-0.1); EOSINOPHIL # 0.3 10^3/uL (0.0-0.2); EOSINOPHIL % 2.9 % (0.0-5.0); HEMOGLOBIN 16.9 g/dL (13.9-16.3); LYMPHOCYTES # 2.2 10^3/uL (1.0-4.8); LYMPHOCYTES % 20.7 % (24.0-44.0); MEAN CELL HGB 29.9 pg (26-34); MEAN CELL HGB CONCENTRATION 32.8 g/dL (33-37); MEAN CORP VOLUME 91.3 fL (78-100); MEAN PLATELET VOLUME 10.4 fL (7.8-11.0); MONOCYTES # 1.2 10^3/uL (0.3-0.8); MONOCYTES % 11.4 % (5.0-12.0); NEUTROPHIL # 6.7 10^3/uL (1.8-7.7); NEUTROPHILS % 63.6 % (41.0-85.0); WHITE BLOOD CELL 10.6 10^3/uL (4.5-11.0)
[2018-11-07 15:53] LABS: BILIRUBIN,URINE NEGATIVE (NEGATIVE); UROBILINOGEN,URINE NORMAL (NEGATIVE)
[2018-11-07 15:55] LABS: APPEARANCE,URINE CLEAR (CLEAR); UA COLOR YELLOW (YELLOW)
[2018-11-07] MEDS ORDERED: NS 1000ML 1,000 ML ONE (15:57)
--- NOTE | 2018-11-07 16:01 | PCM.EKG ---
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 Reading MD: Tristen Conway Measurements Intervals [place] Rate: 71 P: 113 DE: 206 QRS: -84 QRSD: 104 T: 85 QT: 384 QTc: 417 Interpretive Statements Sinus rhythm with fusion complexes Left anterior fascicular block Septal infarct, age undetermined Abnormal ECG Compared to ECG 07/31/2018 11:16:46 Fusion complex(es) now present Myocardial infarct finding now present Atrial premature complex(es) no longer present First degree AV block no longer present Right bundle-branch block no longer present Bifascicular block no longer present Electronically Signed On 11-14-2018 1:00:28 CDT by Tristen Conway Please click the below link to view image of tracing.
[2018-11-07 16:23] LABS: CALCIUM 9.5 mg/dL (8.4-10.5)
[2018-11-07 16:30] VITALS: BP 177/89
--- NOTE | 2018-11-07 16:57 | DIREP ---
PROCEDURE:CHEST 1 VIEW COMPARISON:[facility], CR, XRAY CHEST SINGLE VW, 07/31/2018, 10:33 AM. INDICATIONS:AMS FINDINGS: LUNGS/PLEURA:No significant pulmonary parenchymal abnormalities. No effusions. VASCULATURE:Normal. Unremarkable pulmonary vasculature. CARDIAC:Normal. No cardiac silhouette abnormality or cardiomegaly. MEDIASTINUM:Calcification in the aortic arch. BONES:Normal. No fracture or visible bony lesion. OTHER:Negative. CONCLUSION:No acute abnormalities. Dictated by: Ramón Lopez M.D. on 11/07/2018 at 04:55 PM
[2018-11-07] MEDS ORDERED: DEXTROSE 50%-WATER SYRINGE IV STA (17:29)
[2018-11-07] MEDS ORDERED: SODIUM BICARBONATE IV STA (17:29)
[2018-11-07 17:30] VITALS: BP 122/66
[2018-11-07] MEDS ORDERED: HUMULIN R IV ONE (17:30)
[2018-11-07] MEDS ORDERED: DEXTROSE 50%-WATER SYRINGE IV ONE (17:38)
[2018-11-07] MEDS ORDERED: HUMULIN R ONE (17:38)
[2018-11-07] MEDS ORDERED: SODIUM BICARBONATE IV ONE (17:38)
--- NOTE | 2018-11-07 18:17 | NUR ---
[facility] CALLED TRANSFER LINE, PATIENT IS AUTO ACCEPTED, DOCTOR DIES IS THE ACCEPTING AND JEREMY MIGUEL IS THE AOD.
[2018-11-07 18:23] LABS: BASOPHIL 1 % (0-2); EOSINOPHIL 2 % (1-4); LYMPHOCYTE 22 % (25-36); MONOCYTE 8 % (3-9); SEGMENTED NEUTROPHILS 66 % (31-76)
[2018-11-07 18:24] LABS: ANISOCYTOSIS 1+ (NEGATIVE); TOXIC GRANULATION 1+ (NEGATIVE)
[2018-11-07 18:30] VITALS: BP 133/56
--- NOTE | 2018-11-07 18:48 | NUR ---
[facility]S TONED OUT FOR PATIENT TRANSFER.
--- NOTE | 2018-11-07 19:02 | DIREP ---
PROCEDURE:CT HEAD OR BRAIN W/O CONTRAST COMPARISON:None. INDICATIONS:Alteration of awareness TECHNIQUE:CT images were created without intravenous contrast. FINDINGS: VENTRICLES:There is moderate prominence of the ventricles and cortical sulci consistent with age related involutional changes. CEREBRUM:Small foci of diminished attenuation in the supratentorial white matter consistent with mild leukoaraiosis. CEREBELLUM:Negative. BRAINSTEM:Negative. BASAL CISTERNS:Negative. HEMORRHAGE:No MASS LESION:No ACUTE INFARCT:No SKULL:Normal. SINUSES:Normal. OTHER:Unfused anterior and posterior arch of C1 CONCLUSION: 1. Moderate atrophy and mild leukoaraiosis. 2. No acute findings. Dictated by: Julio C Bell MD on 11/07/2018 at 06:59 PM
--- NOTE | 2018-11-07 19:10 | NUR ---
REPORT CALLED TO LULA TORRES RN
[2018-11-07 19:30] VITALS: BP 84/56
[2018-11-07 19:48] VITALS: BP 84/56
== END 2018-11-07 19:42 | disposition other institution (70) ==
LOC: EDBD 15:04 → ER 15:04
DX: N19 Unspecified kidney failure (principal); E86.0 Dehydration; E87.5 Hyperkalemia; F03.90 Unspecified dementia, unspecified severity, without behavioral disturbance, psychotic disturbance, mood disturbance, and anxiety; Z79.82 Long term (current) use of aspirin; Z79.899 Other long term (current) drug therapy; Z88.0 Allergy status to penicillin
CPT/HCPCS: 36415; 70450; 71045; 80053; 81000; 82553; 84484; 85025; 87077; 87086; 87186; 93005; 96361 ×2; 96374; 96375; 99291; J1815; J3490; J7030; J7060

== ENCOUNTER → 2020-04-19 | Outpatient (CLI) | payer MEDICARE ==
[~2020-04-19] MED LIST changes: -ASPI-655 PO; +ASPI-929 PO; -POTA20LI PO; +POTA20LI2 PO
[2020-04-19 19:04] LABS: APPEARANCE,URINE SLIGHTLY CLOUDY (CLEAR); UA COLOR YELLOW (YELLOW)
[2020-04-19 19:05] LABS: BILIRUBIN,URINE NEGATIVE (NEGATIVE); UROBILINOGEN,URINE NEGATIVE (NEGATIVE)
== END | disposition home or self-care (01) ==
LOC: NPLAB 18:23
PROVIDERS: ATTEND Internal Medicine
DX: N39.0 Urinary tract infection, site not specified (principal)
CPT/HCPCS: 81000; 87077; 87086; 87186

== ENCOUNTER → 2020-08-16 | Outpatient (CLI) | payer MEDICARE, MEDICAID ==
[~2020-08-16] MED LIST changes: +AMLO-170 PO; -AMLO10TA8 PO
[2020-08-16 10:49] LABS: MEAN CORP HGB 23.4 pg (26-34); RED CELL DISTRIBUTION WIDTH 18.9 % (11.5-14.5)
[2020-08-16 11:12] LABS: APPEARANCE,URINE CLEAR (CLEAR); BILIRUBIN,URINE NEGATIVE (NEGATIVE); UA COLOR YELLOW (YELLOW); UROBILINOGEN,URINE NORMAL (NEGATIVE)
== END | disposition home or self-care (01) ==
LOC: NPLAB 10:25
PROVIDERS: ATTEND Internal Medicine
DX: N39.0 Urinary tract infection, site not specified (principal)
CPT/HCPCS: 81000; 85027; 87086

== ENCOUNTER → 2020-08-25 | Outpatient (CLI) | payer MEDICARE, MEDICAID ==
[2020-08-27 05:45] LABS: APPEARANCE,URINE CLEAR (CLEAR); BILIRUBIN,URINE NEGATIVE (NEGATIVE); UA COLOR YELLOW (YELLOW); UROBILINOGEN,URINE 0.2 (NEGATIVE)
== END | disposition home or self-care (01) ==
LOC: NPLAB 16:39
PROVIDERS: ATTEND Internal Medicine
DX: N39.0 Urinary tract infection, site not specified (principal)
CPT/HCPCS: 81000; 87086

== ENCOUNTER → 2020-11-20 | Outpatient (CLI) | payer MEDICARE, MEDICAID ==
[~2020-11-20] MED LIST changes: -LISI-410 PO; +LISI20TA21 PO
[2020-11-20 17:37] LABS: BASOPHIL # 0.1 10^3/uL (0.0-0.1); BASOPHIL % 0.6 % (0.0-0.2); EOSINOPHIL # 0.7 10^3/uL (0.0-0.2); EOSINOPHIL % 5.4 % (0.0-5.0); LYMPHOCYTES # 2.43 10^3/uL1 (1.0-4.8); LYMPHOCYTES % 19.8 % (24.0-44.0); MEAN CORP HGB 24.2 pg (26-34); MONOCYTES % 7.8 % (5.0-12.0); NEUTROPHIL # 8.1 10^3/uL (1.8-7.7); NEUTROPHILS % 66.1 % (41.0-85.0); PLATELET COUNT 354 10^3/uL (150-400); RED CELL DISTRIBUTION WIDTH 20.7 % (11.5-14.5)
== END | disposition home or self-care (01) ==
LOC: LAB 17:13
PROVIDERS: ATTEND Internal Medicine
DX: N39.0 Urinary tract infection, site not specified (principal)
CPT/HCPCS: 36415; 85025

== ENCOUNTER → 2022-01-21 | Outpatient (CLI) | payer MEDICARE, MEDICAID ==
[2022-01-21 18:33] LABS: BILIRUBIN,URINE NEGATIVE (NEGATIVE); UROBILINOGEN,URINE 0.2 E.U./dL (0.2)
[2022-01-21 18:38] LABS: BASOPHIL % 0.2 % (0.0-0.2); EOSINOPHIL % 0.1 % (0.0-5.0); LYMPHOCYTES # 0.61 10^3/uL1 (1.0-4.8); LYMPHOCYTES % 4.8 % (24.0-44.0); MEAN CORP HGB 23.4 pg (26-34); MONOCYTES # 0.7 10^3/uL (0.3-0.8); MONOCYTES % 5.5 % (5.0-12.0); NEUTROPHIL # 11.4 10^3/uL (1.8-7.7); NEUTROPHILS % 89.2 % (41.0-85.0); PLATELET COUNT 219 10^3/uL (150-400); RED CELL DISTRIBUTION WIDTH 18.5 % (11.5-14.5)
[2022-01-21 18:47] LABS: CARBON DIOXIDE 17.4 mmol/L (20.0-32)
[2022-01-21 21:03] LABS: BAND NEUTROPHILS 1 % (2-6); LYMPHOCYTE 3 % (25-36); MONOCYTE 4 % (3-9); SEGMENTED NEUTROPHILS 92 % (31-76)
[2022-01-21 21:04] LABS: ANISOCYTOSIS 1+ (NEGATIVE); MICROCYTOSIS 1+ (NEGATIVE)
== END | disposition home or self-care (01) ==
LOC: NPLAB 17:48
PROVIDERS: ATTEND Internal Medicine
DX: N17.9 Acute kidney failure, unspecified (principal); R82.90 Unspecified abnormal findings in urine
CPT/HCPCS: 36415; 80053; 81001; 85025; 87086

== ENCOUNTER → 2022-01-29 | Outpatient (CLI) | payer MEDICARE, MEDICAID ==
[2022-01-29 17:49] LABS: BILIRUBIN,URINE 2+ (NEGATIVE)
== END | disposition home or self-care (01) ==
LOC: NPLAB 17:22
PROVIDERS: ATTEND Internal Medicine
DX: R82.90 Unspecified abnormal findings in urine (principal)
CPT/HCPCS: 81001; 87086